=== PATIENT | female | born 2000 | race American Indian/Alaskan Native ===

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

== ENCOUNTER 2021-10-05 05:31 | Emergency (ER) | payer MEDICAID ==
--- NOTE | 2021-10-05 05:34 | Event Note ---
Date: 10/05/21 The patient was evaluated in the emergency department for symptoms described in the history of present illness. He/she was evaluated in the context of the global COVID-19 pandemic, which necessitated consideration that the patient might be at risk for infection with the virus that causes COVID-19. Institutional protocols and algorithms that pertain to the evaluation of patients at risk for COVID-19 are in a state of rapid change based on information released by regulatory bodies including the CDC and federal and state organizations. These policies and algorithms were followed during the patient's care in the emergency department. Please note that these policies, procedures and recommendations changed on a rapid basis. EMS documentation not available at time of chart dictation Verbal report received from emergency medical services. Medical screening examination note: 21-year-old female, brought to the hospital by EMS with an EMS articulated complaint of lower back pain. Patient was reportedly seen at [facility] within the past week for similar complaint, reportedly given prescription medication, and as per verbal report from EMS, patient not able to get medications filled, did not have a ride, and thus called 911. EMS reports that patient is ambulatory in the field, with unremarkable vital signs. In the emergency room, patient is awake, in no acute distress, and breathing spontaneously. Detailed history and physical to be performed by oncoming ER provider.
[2021-10-05] MEDS ORDERED: ACETAMINOPHEN 325 MG TAB PO ONE (05:36)
[2021-10-05] MEDS ORDERED: IBUPROFEN 400 MG TAB PO ONE (05:36)
[2021-10-05 05:38] VITALS: BP 124/84
--- NOTE | 2021-10-05 05:40 | Emergency Department Report ---
ED General Adult HPI - General Chief complaint: Back Pain/Injury Stated complaint: LOWER BACK PAIN X 1 WK PUI?: Yes Source: patient, EMS (Verbal report received from emergency medical services. EMS documentation not available at time of chart dictation ), RN notes reviewed Mode of arrival: Stretcher Limitations: No Limitations - History of Present Illness Initial comments: The patient was evaluated in the emergency department for symptoms described in the history of present illness. He/she was evaluated in the context of the global COVID-19 pandemic, which necessitated consideration that the patient might be at risk for infection with the virus that causes COVID-19. Institutional protocols and algorithms that pertain to the evaluation of bert ents at risk for COVID-19 are in a state of rapid change based on information released by regulatory bodies including the CDC and federal and state organizations. These policies and algorithms were followed during the patient's care in the emergency department. Please note that these policies, procedures and recommendations changed on a rapid basis. EMS documentation not available at time of chart dictation The patient is a 21-year-old female who states that she is not , presenting to the ER today with a complaint of nonradiating paralumbar back pain, present for about a week. Patient denies focal extremity weakness and numbness. Denies additional injuries and complaints. Pain is sharp and throbbing, increases with palpation, range of motion, and decreases with rest. Apparently does not radiate anywhere. Seen and and evaluated at [facility], reportedly given muscle relaxants and NSAIDs, patient reports that these medications do not work. Denies bladder or bowel symptoms, and makes no complaint of saddle anesthesia. No fevers or chills. No additional injuries or complaints. EMS reports normal vital signs in the field, and patient is ambulatory in the field. -: days(s) Location: back Quality: aching Consistency: constant Improves with: rest Worsens with: movement Associated Symptoms: denies other symptoms - Related Data Allergies Allergy/AdvReac Type Severity Reaction Status Date / Time No Known Allergies Allergy Unverified 03/22/19 12:41 ED Review of Systems ROS: Stated complaint: LOWER BACK PAIN X 1 WK Other details as noted in HPI Constitutional: denies: fever Respiratory: see HPI Cardiovascular: as per HPI Endocrine: see HPI Gastrointestinal: as per HPI. denies: abdominal pain Musculoskeletal: back pain Neurological: denies: weakness, numbness ED Past Medical Hx - Past Medical History Hx Asthma: Yes - Social History Smoking Status: Never Smoker Substance Use Type: None ED Physical Exam - General Limitations: No Limitations General appearance: alert, in no apparent distress, obese - Head Head exam: Present: atraumatic, normocephalic - Eye Eye exam: Present: normal appearance, EOMI. Absent: nystagmus - ENT ENT exam: Present: normal exam, normal orophraynx, mucous membranes moist, normal external ear exam - Neck Neck exam: Present: normal inspection, full ROM. Absent: tenderness, meningismus - Respiratory Respiratory exam: Present: normal lung sounds bilaterally. Absent: respiratory distress, wheezes, rales, rhonchi, stridor, accessory muscle use, decreased yousif th sounds - Cardiovascular Cardiovascular Exam: Present: regular rate, normal rhythm, normal heart sounds. Absent: bradycardia, tachycardia, irregular rhythm, systolic murmur, diastolic murmur, rubs, gallop - GI/Abdominal GI/Abdominal exam: Present: soft. Absent: distended, tenderness, guarding, rigid, pulsatile mass - Extremities Exam Extremities exam: Present: normal inspection, full ROM, other (2+ pulses noted in the bilateral upper and lower extremities. There is no palpable cord. negative Homans sign. Muscular compartments are soft. The pelvis is stable.). Absent: pedal edema, calf tenderness - Back Exam Back exam: Present: normal inspection, paraspinal tenderness. Absent: CVA tenderness (R), CVA tenderness (L) - Neurological Exam Neurological exam: Present: alert, oriented X3, reflexes normal, other (No facial droop. Tongue midline. Extraocular movements intact bilaterally. Facial sensation intact to light touch in V1, V2, V3 distribution bilaterally. 5 and a 5 strength in 4 extremities. Sensation intact to light touch in 4 extremities.). Absent: motor sensory deficit - Psychiatric Psychiatric exam: Present: normal affect, normal mood - Skin Skin exam: Present: warm, dry, intact, normal color. Absent: rash ED Medical Decision Making - Lab Data Vital Signs 10/05/21 05:36 Temperature 98.2 F Pulse Rate 84 Respiratory 18 Rate Blood Pressure 124/84 [Left] O2 Sat by Pulse 99 Oximetry - Medical Decision Making Differential diagnosis, including but not limited to: Mechanical back pain, musculoskeletal back pain, body mass index of 34.2 Assessment and plan: 21-year-old female, who was afebrile, with reassuring vital signs, complaining reproducible paralumbar back pain, without redness, pus, streaking, midline spinal tenderness, or any red flag signs or symptoms. Patient educated as to the natural history of mechanical back pain. This does not appear to be an emergent medical condition at this time. She may discontinue muscle relaxants. Ice packs, heat packs, Tylenol, Motrin, consideration for outpatient physical therapy, rehab, and complementary medicine. Critical care attestation.: If time is entered above; I have spent that time in minutes in the direct care of this critically ill patient, excluding procedure time. ED Disposition Clinical Impression: Lower back pain, BMI 34.0-34.9,adult Disposition: 01 HOME / SELF CARE / HOMELESS Is pt being admited?: No Does the pt Need Aspirin: No Condition: Good Instructions: Obesity, Adult, Back Exercises, [id number] Additional Instructions: Patient may alternate ice packs and heat packs as needed for physical pain relief. Patient may discontinue muscle relaxants as they do not have any utility or use. Lower back pain typically takes days, weeks or even months to improve. Patient was also found to have a body mass index of 34.2, and is considered obese. We recommend aggressive weight loss, diet and exercise as tolerated. Patient may also benefit from acupuncture, massage, chiropractic therapy, or physical therapy. She should follow-up with his primary care doctor to pursue these outpatient complementary therapies. We recommend follow-up with a primary care doctor within the next 2 weeks. Please return to the emergency room right away with new pain, worsened pain, migration of pain, projectile vomiting, change in mental status, confusion, inab ility tolerate liquid feeds, new, worsened or different symptoms not present on the initial emergency room evaluation Avoid heavy lifting and strenuous physical activity, participate in physical activities as tolerated. Referrals: [facility] [Provider Group] - 3-5 Days
== END 2021-10-05 06:34 | disposition home or self-care (01) ==
LOC: ED 05:31
DX: M54.50 Low back pain, unspecified (principal); Z68.34 Body mass index [BMI] 34.0-34.9, adult; J45.909 Unspecified asthma, uncomplicated
CPT/HCPCS: 99283